=== PATIENT | female | born 1955 | race Caucasian/White ===

== ENCOUNTER 2017-11-09 07:59 | Observation (INO) | payer OTHER ==
[~2017-11-09] VITALS: Ht 149.9 cm; Wt 85.1 kg
[2017-11-09 08:45] LABS: HEMATOCRIT 36.9 % (36.0-46.0); HEMOGLOBIN 12.9 G/DL (11.9-15.5); MCH 31.6 PG (29.0-34.0); MCV 90.4 FL (83-99); PLATELET COUNT 240 K/uL (156-360); RBC DIS.WIDTH-CV 11.9 % (11.8-14.6); RBC DIS.WIDTH-SD 39.5 % (39-53); RED BLOOD COUNT 4.08 M/uL (3.80-5.20); WHITE BLOOD COUNT 8.2 K/uL (4.1-10.2)
[2017-11-09 09:01] LABS: CHLORIDE 103 mEq/L (99-109); POTASSIUM 4.3 mEq/L (3.7-5.4); SODIUM 139 mEq/L (136-147)
[2017-11-09 09:03] LABS: GLUCOSE 127 mg/dL (70-99)
[2017-11-09 09:07] LABS: CREATININE 0.7 mg/dL (0.6-1.3); GFR ESTIMATE (CALCULATED) > 59 mL/min/
[2017-11-09 09:12] LABS: TROP-I INTERPRETATION NEGATIVE; TROPONIN-I < 0.01 ng/mL (0.0-0.30)
[2017-11-09 09:52] LABS: UREA NITROGEN (BUN) 14 mg/dL (9-23)
[2017-11-09] MEDS ORDERED: LEVOTHYROXINE112 MCG PO (10:03)
[2017-11-09] MEDS ORDERED: ZESTORETIC 20-1 EAC1 PO (10:03)
[2017-11-09] MEDS ORDERED: METOPROLOL TART25 MG PO (10:05)
[2017-11-09] MEDS ORDERED: VITAMIN D2000 UNIT PO (10:06)
[2017-11-09] MEDS ORDERED: SIMVASTATIN20 MG PO (10:06)
[2017-11-09] MEDS ORDERED: SERTRALINE HCL50 MG PO (10:06)
[2017-11-09] MEDS ORDERED: CALCIUM 600 +1 EAC3 PO (10:06)
[2017-11-09] MEDS ORDERED: ASPIR-LOW81 MG PO (10:07)
[2017-11-09] MEDS ORDERED: VITAMIN B-6100 MG PO (10:07)
[2017-11-09] MEDS ORDERED: FISH OIL 1,0001 EA10 PO (10:08)
[2017-11-09 11:00] VITALS: BP 136/63
[2017-11-09 12:15] LABS: THYROTROPIN (TSH) 0.35 MIU/L (0.4-5.5)
[2017-11-09 13:57] LABS: APPEARANCE CLEAR ((CLEAR)); BILIRUBIN NEGATIVE; BLOOD NEGATIVE; COLOR STRAW ((YELLOW)); GLUCOSE (STRIP) NEGATIVE; KETONES NEGATIVE; LEUKOCYTES NEGATIVE; NITRITE NEGATIVE; PROTEIN (STRIP) NEGATIVE; SPECIFIC GRAVITY 1.004 (1.000-1.030); UCUL ADDED? NO; UROBILINOGEN 0.2 MG/DL (0.2-1.0)
[2017-11-09 16:42] LABS: TROP-I INTERPRETATION NEGATIVE; TROPONIN-I < 0.01 ng/mL (0.0-0.30)
[2017-11-09 20:19] VITALS: BP 139/67
[2017-11-09 21:23] LABS: TROP-I INTERPRETATION NEGATIVE; TROPONIN-I < 0.01 ng/mL (0.0-0.30)
[2017-11-10 00:34] VITALS: BP 126/66
[2017-11-10 04:02] VITALS: BP 117/60
[2017-11-10 07:17] VITALS: BP 137/66
[2017-11-10 11:32] VITALS: BP 143/68
== END 2017-11-10 13:30 | disposition home or self-care (01) ==
LOC: EME 07:59 → 4SOUTH 09:38 → EDOF 09:38 → 4SOUTH 10:37
PROVIDERS: Hospitalist; Nurse Practitioner Family
PROC: B246ZZZ Ultrasonography of Right and Left Heart (ICD-10-PCS; principal; 2017-11-09)
DX: R55 Syncope and collapse (principal); I10 Essential (primary) hypertension; E78.5 Hyperlipidemia, unspecified; E03.9 Hypothyroidism, unspecified; E66.9 Obesity, unspecified; Z68.37 Body mass index [BMI] 37.0-37.9, adult; Z82.49 Family history of ischemic heart disease and other diseases of the circulatory system
CPT/HCPCS: 70450; 70551; 71046; 80048; 81003; 82607; 82948; 84439; 84443; 84484; 85027; 93005; 93306; 93880; 99281; 99285; G0378; J2060; J7030